=== PATIENT | female | born 1990 | race Caucasian/White ===

== ENCOUNTER 2021-12-20 17:12 | Emergency (ER) | payer SELFPAY ==
[~2021-12-20] VITALS: Ht 160 cm; Wt 68.0 kg
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
[2021-12-20] MEDS ORDERED: TDAP [DIPH/PERTUSSIS/TET] 0.5 ML VIAL IM ONE ×2 (18:00→18:01)
[2021-12-20] MEDS ORDERED: RABIES VACCINE (PCEC)/PF 1 EA KIT IM ONE ×2 (18:00→18:01)
[2021-12-20] MEDS ORDERED: KETOROLAC TROMETHAMINE INJ 30 MG/ML VIAL ONE (18:20)
[2021-12-20] MEDS ORDERED: RABIES IMMUNE GLOBULIN/PF 150 UNIT/ML VIAL IM ONE (18:30)
[2021-12-20] MEDS ORDERED: KETOROLAC TROMETHAMINE INJ 30 MG/ML VIAL IM ONE (18:30)
--- NOTE | 2021-12-20 18:44 | NUR ---
DR NUNEZ AT BEDSIDE FOR LACERATION REPAIR
[2021-12-20] MEDS ORDERED: AMOX-430 PO (19:10)
--- NOTE | 2021-12-20 20:03 | NUR ---
Patient discharged to home in stable condition. Written and verbal after care instructions given. Patient verbalizes understanding of instruction.
[2021-12-20 20:04] VITALS: BP 126/76
== END 2021-12-20 20:04 | disposition home or self-care (01) ==
LOC: ER 17:15
DX: S61.213A Laceration without foreign body of left middle finger without damage to nail, initial encounter (principal); F41.9 Anxiety disorder, unspecified; Z79.899 Other long term (current) drug therapy; W54.0XXA Bitten by dog, initial encounter; Y93.89 Activity, other specified; Y92.89 Other specified places as the place of occurrence of the external cause; Y99.8 Other external cause status
CPT/HCPCS: 12001; 73130; 90375; 90471; 90472; 90675; 90715; 96372 ×2; 99284; A6403; J1885